=== PATIENT | female | born 1970 | race Two or more races ===

== ENCOUNTER 2017-09-26 16:00 | Emergency (ER) | payer OTHER ==
[~2017-09-26] VITALS: Ht 157.5 cm; Wt 80.6 kg
[2017-09-26 17:24] LABS: ALANINE AMINOTRANSFERASE 35 U/L (12-78); ALBUMIN 4.1 g/dL (3.4-5.0); ANION GAP 12 mmol/L (5-15); CALCIUM 8.6 mg/dL (8.5-10.1); CHLORIDE 106 mmol/L (98-107); CREATININE 0.85 mg/dL (0.55-1.02)
[2017-09-26 17:25] LABS: BASOPHILS # (AUTO) 0.04 x10^3/uL (0-0.1); BASOPHILS % (AUTO) 0 % (0-1); EOSINOPHILS # (AUTO) 0.06 x10^3/uL (0-0.4); EOSINOPHILS % (AUTO) 1 % (1-7); LYMPHOCYTES # (AUTO) 2.11 x10^3/uL (1-3.4); LYMPHOCYTES % (AUTO) 18 % (22-44); MD NO; MEAN CORPUSCULAR HEMOGLOBIN 29.2 pg (27.0-34.8); MEAN CORPUSCULAR HGB CONC 33.9 g/dL (32.4-35.8); MEAN CORPUSCULAR VOLUME 86.1 fL (80-100); MEAN PLATELET VOLUME 9.1 fL (7.4-10.4); MONOCYTES # (AUTO) 0.53 x10^3/uL (0.2-0.8); MONOCYTES % (AUTO) 4 % (2-9); NEUTROPHILS # (AUTO) 9.26 x10^3/uL (1.8-6.8); NEUTROPHILS % (AUTO) 77 % (42-75); PLATELET COUNT 192 x10^3/uL (130-400); RED BLOOD COUNT 5.29 x10^6/uL (3.82-5.3); RED CELL DISTRIBUTION WIDTH 14.1 % (9.6-15.2)
[2017-09-26 17:26] LABS: ALKALINE PHOSPHATASE 49 U/L (45-117); BILIRUBIN,TOTAL 0.8 mg/dL (0.2-1.0); TOTAL PROTEIN 8.1 g/dL (6.4-8.2)
[2017-09-26] MEDS ORDERED: OXYC-302 PO (18:50)
[2017-09-26] MEDS ORDERED: SUMA25TA3 PO (18:50)
[2017-09-26] MEDS ORDERED: CHOL400C PO (18:50)
[2017-09-26] MEDS ORDERED: ASPI1TAB31 PO (18:51)
[2017-09-26] MEDS ORDERED: CYAN1TAB29 PO (18:51)
[2017-09-26] MEDS ORDERED: SODIUM CHLORIDE FLUSH 10ML SYR IVF ONE (19:00)
[2017-09-26] MEDS ORDERED: FENTANYL PF 100 MCG/2ML IV ONE (19:00)
[2017-09-26] MEDS ORDERED: PROMETHAZINE 25 MG/ML, 1ML IM ONE (19:00)
[2017-09-26] MEDS ORDERED: PROMETHAZINE 25 MG/ML, 1ML ONE (19:05)
[2017-09-26] MEDS ORDERED: FENTANYL PF 100 MCG/2ML ONE (19:06)
[2017-09-26 19:20] LABS: MICROSCOPIC AUTO
[2017-09-26 19:25] LABS: CULTURE INDICATED? NO
[2017-09-26] MEDS ORDERED: OMNIPAQUE 350 MG/ML, 100ML BOTTLE ONE (19:35)
[2017-09-26 19:37] LABS: TROPONIN I < 0.015 ng/mL (0.000-0.045)
[2017-09-26 20:46] VITALS: BP 144/87
== END 2017-09-26 21:00 | disposition home or self-care (01) ==
LOC: ED 20:40
DX: K25.3 Acute gastric ulcer without hemorrhage or perforation (principal); K52.9 Noninfective gastroenteritis and colitis, unspecified; B96.81 Helicobacter pylori [H. pylori] as the cause of diseases classified elsewhere; Z90.49 Acquired absence of other specified parts of digestive tract
CPT/HCPCS: 36415; 74022; 74177; 80053; 81001; 83690; 84484; 85025; 86677; 93005; 96372; 96374; 99285; J2550; J3010; Q9967